=== PATIENT | female | born 1955 | race Caucasian/White ===

== ENCOUNTER 2018-02-24 23:07 | Inpatient (IN) | payer MEDICARE, OTHER ==
[~2018-02-24] VITALS: Ht 172.7 cm; Wt 90.7 kg
[2018-02-24] MEDS ORDERED: ASPIRIN 81 MG CHEW TAB PO ONE (23:45)
[2018-02-25] VITALS (7 sets, daily range): BP systolic 120–191; BP diastolic 50–84
--- NOTE | 2018-02-25 00:41 | Diagnostic Imaging Report ---
History:AMS Comparison studies:None Technique: Axial images were obtained from the skull base to the vertex. Coronal and sagittal images reconstructed from the axial data. Intravenous contrast: None Findings: Scalp/skull: No abnormalities. Extra-axial spaces: No masses. No fluid collections. Brain sulci: Mildly prominent. Ventricles: Mild compensatory dilatation. No hydrocephalus. Parenchyma: Few hypodensities in the supratentorial white matter are small vessel ischemic changes. No masses, hemorrhage, acute or chronic cortical vascular insults. Sellar/suprasellar region: No abnormalities. Craniocervical junction: Patent foramen magnum. No Chiari one malformation. Incidental findings: Atherosclerotic calcifications in the carotid siphons . Impression: No acute abnormalities. Chronic findings: 1. Mild generalized volume loss. 2. Mild supratentorial white matter small vessel ischemic changes. Signed by: DR Castro Alvarez M.D. on 02/25/2018 12:37 AM
--- NOTE | 2018-02-25 00:48 | Diagnostic Imaging Report ---
EXAM: CHEST SINGLE (PORTABLE), AP 1 view INDICATION: Patient altered COMPARISON: None FINDINGS: LINES/TUBES: None LUNGS: Bilateral interstitial and airspace opacities. PLEURA: No effusions or pneumothorax. HEART AND MEDIASTINUM: Enlargement of the cardiomediastinal silhouette. BONES AND SOFT TISSUES: No acute findings. IMPRESSION: Bilateral interstitial and airspace opacities that could represent edema or multifocal pneumonia. Signed by: Dr. Isabel Fraser M.D. on 02/25/2018 12:45 AM
[2018-02-25 01:28] LABS: BILIRUBIN,URINE NEGATIVE (NEGATIVE); CLARITY,URINE CLEAR (CLEAR); COLOR,URINE YELLOW (YELLOW); KETONES,URINE NEGATIVE (NEGATIVE); LEUKOCYTE ESTERASE ,URINE NEGATIVE (NEGATIVE); NITRITE,URINE NEGATIVE (NEGATIVE); PROTEIN,URINE DIPSTICK 2+ (NEGATIVE); URINE UROBILINOGEN 0.2 mg/dL (0.2 - 1)
[2018-02-25 01:31] LABS: BACTERIA,URINE RARE /HPF; EPITHELIAL CELLS,URINE RARE /LPF
[2018-02-25] MEDS ORDERED: CLONIDINE HCL 0.2 MG TAB PO ONE (01:45)
[2018-02-25 02:00] LABS: BASOPHILS # (AUTO) 0.1 (0.0-0.1); BASOPHILS % 0.8 % (0.0-1.0); EOSINOPHILS # (AUTO) 0.1 (0.0-0.4); HEMATOCRIT 40.2 % (34.2-44.1); HEMOGLOBIN 12.1 g/dL (12.0-16.0); LYMPHOCYTES % 16.3 % (18.0-39.1); MEAN CORPUSCULAR HGB CONC 30.1 g/dL (31-35); MEAN CORPUSCULAR VOLUME 99.8 fL (81-99); MONOCYTES # (AUTO) 0.4 (0.2-0.8); MONOCYTES % 7.2 % (4.4-11.3); NEUTROPHILS # (AUTO) 4.5 (2.1-6.9); NEUTROPHILS % 73.4 % (38.7-80.0); PLATELET COUNT 201 x10e3/uL (140-360); RED BLOOD COUNT 4.03 x10e6/uL (3.6-5.1); RED CELL DISTRIBUTION WIDTH 15.3 % (11.7-14.4)
[2018-02-25 02:07] LABS: ALBUMIN 3.3 g/dL (3.5-5.0); ALBUMIN/GLOBULIN RATIO 0.9 (0.8-2.0); ANION GAP 22.3 mmol/L (8-16); CALCIUM 8.5 mg/dL (8.4-10.2); CREATININE, SERUM 5.4 mg/dL (0.57-1.11)
[2018-02-25 02:14] LABS: POTASSIUM 7.3 mmol/L (3.5-5.1)
[2018-02-25] MEDS ORDERED: LORAZEPAM INJ 2 MG/ML VIAL ONE (02:55)
[2018-02-25] MEDS ORDERED: LORAZEPAM INJ 2 MG/ML VIAL IM ONE (03:00)
[2018-02-25] MEDS ORDERED: SODIUM BICARBONATE 8.4% INJ 50 ML SYR IV STA (05:05)
[2018-02-25] MEDS ORDERED: DEXTROSE 50% SYRINGE 50 ML IV STA (05:05)
[2018-02-25] MEDS ORDERED: INSULIN REGULAR, HUMAN 100 UNIT/1 ML 3ML VIAL IV ONE (05:15)
[2018-02-25] MEDS ORDERED: CALCIUM GLUCONATE 10% INJ 13.95 MEQ in SODIUM CHLORIDE 0.9% 100 ML 100 ML IV ONE (05:15)
[2018-02-25] MEDS ORDERED: CALCIUM GLUCONATE 10% INJ 0.465 MEQ/ML VIAL ONE ×2 (05:31→05:39)
[2018-02-25] MEDS ORDERED: CALCIUM CHLORIDE 10% 1.36 MEQ/ML 10ML SYR IV STA (05:36)
[2018-02-25] MEDS ORDERED: SODIUM CHLORIDE 0.9% 50ML 50 ML ONE (05:44)
[2018-02-25] MEDS ORDERED: ONDANSETRON HCL INJ 2 MG/ML VIAL IV PRN (06:15)
[2018-02-25] MEDS ORDERED: DEXTROSE 50% SYRINGE 50 ML IV PRN (06:15)
[2018-02-25] MEDS ORDERED: LORAZEPAM INJ 2 MG/ML VIAL IV PRN (06:15)
[2018-02-25] MEDS: INSULIN REGULAR, HUMAN 100 UNIT/1 ML 3ML VIAL SQ SCH ×4 (07:30→20:12)
--- NOTE | 2018-02-25 08:48 | Consultation ---
DATE OF CONSULTATION: February 25, 2018 NEPHROLOGY CONSULTATION REQUESTING PHYSICIAN: Dr. Walker. REASON FOR CONSULTATION: ESRD. Thank you for allowing us to participate in Ms. Jacobo's care. HISTORY OF PRESENT ILLNESS: This is a 63-year-old female, apparently is a assisted resident with a history of end-stage renal disease. Came in essentially altered, confused, apparently had been refusing dialysis. Currently she is even waking up. There has been a history of trouble walking, but much of the history is extracted from the chart as she herself is not saying anything. PAST HISTORY: Per chart. Hypertension, diabetes, neuropathy. MEDICATIONS: Please see notes. FAMILY HISTORY: Unable to obtain. SOCIAL HISTORY: Apparent assisted resident. REVIEW OF SYSTEMS: Unable to obtain as she is not talking. PHYSICAL EXAMINATION GENERAL: She appears somnolent. Not answering questions. Occasionally will move to pain. VITAL SIGNS: Temperature 98.3, pulse 86, blood pressure was as high as 227/98 and has come down to 153/60 with medications. HEENT: Grossly atraumatic. NECK: Unable to see JVD. CHEST: Diminished breath sounds at the bases. Crackles plus. CARDIAC: Normal heart tones. Rhythm sounds regular at this point. No bradycardia is noted. Heart rate is 72. EXTREMITIES: Trace edema. ABDOMEN: Benign. NEUROLOGIC: Somnolent. SKIN: Appears intact in exposed areas. VASCULAR: Patent left upper extremity AV graft. LABS: Hemoglobin 12. Potassium 7.3, serum CO2 19, creatinine 5.4, BUN 87, sodium 134. UA showing a few RBCs, no WBCs. ASSESSMENT 1. End-stage renal disease with fluid overload. 2. Hyperkalemia. 3. Delirium/altered mental status that needs to be investigated. Some of this may be uremia, but I suspect there may be some drug effects, too, as she is unusually somnolent in this context. PLAN: Emergent dialysis. There is some concern she might move the needles, but I feel the potassium level is life-threatening at this point. Will discuss the orders with dialysis nurse. Will plan a 4-hour run with a 2-potassium bath, fluid removal of 3 to 4 liters. Will follow along clinically. Job#: [id number] EV
[2018-02-25] MEDS ORDERED: SODIUM CHLORIDE 0.9% 1000ML 2,000 ML ONE (14:25)
--- NOTE | 2018-02-25 14:39 | History and Physical ---
PRIMARY CARE PHYSICIAN: Dr. Efren Vazquez. CHIEF COMPLAINT: Altered mental status. HISTORY OF PRESENT ILLNESS: Patient is a 63-year-old female who had a change in mental status at approximately 4 p.m. on February 24. She was not found unresponsive. She is a snf resident at [facility]. She was found to be disoriented and confused. She does not have any history of chronic dementia. Her dextro stick for blood sugar was not low prior to arrival. She has been refusing dialysis. She had approximately 1 hour's worth of dialysis on Tuesday but none since. She has had difficulty walking but no numbness or recent fall. As she is confused, most of her history is obtained from the registered nurse at the bedside as well as the emergency room physician's documentation and documentation from Dr. Archibald with nephrology. PAST MEDICAL HISTORY: Hypertension, diabetes, neuropathy, end-stage renal disease on dialysis Tuesday/Tuesday/Tuesday. PAST SURGICAL HISTORY: Unobtainable due to altered mental status. PAST FAMILY HISTORY: Unable to obtain past family medical history due to patient's altered mental status. SOCIAL HISTORY: Unable to obtain due to patient's altered mental status. ALLERGIES: INCLUDE SULFA, GABAPENTIN AND HEPARIN. MEDICATIONS AT THE LONG TERM: Include aspirin EC tablet 81 mg p.o. daily, atorvastatin 10 mg nightly, bumetanide 2 mg b.i.d., calcium acetate 667 mg with meals, calcium carbonate chewable 500 mg t.i.d. p.r.n. for heartburn, calcium carbonate 500 mg 2 tablets before meals p.r.n. for heartburn, Centrum Women's tablet multivitamin 1 tablet p.o. daily. Clonidine 0.1 mg t.i.d. for hypertension, hold for systolic blood pressure less than 110, diastolic blood pressure less than 60 or heart rate less than 60. Clopidogrel bisulfate 75 mg daily, diclofenac sodium gel 1% application transdermally every 4 hours p.r.n. for pain in the hands, Dilantin capsule 200 mg every 8 hours, Colace 100 mg b.i.d., Dulcolax 5 mg daily p.r.n. for constipation, hydralazine 100 mg daily every Tuesday/Tuesday/Tuesday for hypertension. Hydralazine 100 mg daily every Tuesday, Tuesday, and Tuesday. Keppra 250 mg daily p.r.n. for seizure. Labetalol 300 mg daily Tuesday/Tuesday/Tuesday. Labetalol 300 mg every Tuesday/Tuesday//Tuesday. Keppra 250 mg daily for seizures. Lorazepam 0.5 mg every 6 hours p.r.n. for anxiety. Lorazepam potassium 100 mg daily every Tuesday, Tuesday, and Tuesday. Metolazone 5 mg b.i.d. Milk of magnesia 30 mL daily p.r.n. for constipation. Aspart insulin sliding scale. Oxycodone hydrochloride ER tablet 2 tablets every 12 hours. Oxycodone 10 mg every 4 hours p.r.n. for pain. Pepcid 40 mg daily for GERD. Scopolamine patch 1 mg per 3 day transdermally every 72 hours p.r.n. for dizziness and nausea. Zofran 4 mg p.o. every 6 hours p.r.n. for nausea, vomiting. REVIEW OF SYSTEMS: Unable to obtain as she is confused. PHYSICAL EXAMINATION VITAL SIGNS: Temperature 98.6, heart rate 72, blood pressure 148/59, respirations 18, oxygen saturation 100%. She is 5 feet 8 inches, 200 pounds, BMI 30.4. GENERAL: The patient is a well-nourished, well-developed, morbidly obese female chronically ill-appearing. HEENT: Pupils equal, round, reactive to light. Extraocular eye movements intact. Oropharynx clear. Atraumatic, normocephalic. NECK: Supple. No lymphadenopathy or thyromegaly. No carotid bruits. CARDIOVASCULAR: Regular rate and rhythm without murmur or extra heart sounds. LUNGS: Air entry bilaterally. No wheezing, crackles or rhonchi. Lung sounds are clear to auscultation. ABDOMEN: Bowel sounds positive. Soft, nontender. Morbidly obese. EXTREMITIES: There is some discoloration of the legs consistent with a history of chronic venous insufficiency. Mild nonpitting edema. INTEGUMENTARY: A puncture wound noted right femoral area from attempts at a right femoral central line placement attempt as noted with nursing staff. Skin is warm and dry. NEUROLOGICAL: GCS 13. Eye 4, verbal 4, motor 5. Awake, alert, disoriented. LABORATORY DATA: Sodium 134, potassium 7.3, chloride 100, CO2 19, BUN 97, creatinine 5.4, glucose 149. Glomerular filtration rate 8. Calcium 8.5. Total bilirubin 0.3, AST 19, ALT 15, alkaline phosphatase 165. Creatine kinase 111, CK-MB 5.0, troponin I 0.012. B-type natriuretic peptide 457. Total protein 7.0, albumin 3.3, globulin 3.7. Fingerstick blood glucose levels 225, 66. WBC 6.15, hemoglobin 12.1, hematocrit 40.2, platelets 201. Urinalysis showed 2+ protein, 1+ glucose, 1+ blood, 6-10 RBCs, negative for leukocyte esterase, negative for nitrite. Hepatitis B surface antigen as well as surface antibody, total core antibody and core IgM antibody are all pending. DIAGNOSTIC STUDIES: Chest x-ray was obtained early this morning, and according to the interpreting radiologist illustrated bilateral interstitial and air-space opacities that could represent edema or multifocal pneumonia. CT of the brain showed mild generalized volume loss and mild supratentorial white matter small-vessel ischemic changes. A 12-lead EKG was obtained February 24, which showed normal sinus rhythm with sinus arrhythmia and a heart rate of 87. ASSESSMENT AND PLAN 1. Delirium/altered mental status/toxic encephalopathy: Her altered mental status should be further investigated. I suspect it is multifactorial. She likely has toxic encephalopathy due to lack of dialysis and perhaps accumulation of medications in her system. I will ask Psychiatry to also see the patient. Monitor for improvement with dialysis, which is to occur NANCIE. 2. End-stage renal disease with fluid volume overload. Nephrology has been consulted and is planning on completing hemodialysis today. However, this is complicated by the fact that the patient's family members and POA do not have any accurate phone numbers listed in the chart. The nurse will continue to attempt to get ahold of family. However, in the meantime Dr. Vazquez and Dr. Archibald have both agreed to give consent for emergent hemodialysis. 3. Severe hyperkalemia with potassium level 7.3. Again, the patient will undergo hemodialysis today. 4. Hypertension. Continue snf medications as tolerated. If patient refuses to take them orally, then some may need to be converted from p.o. to IV. 5. Type 2 diabetes mellitus. Monitor fingerstick blood glucose levels. She is on a regular insulin sliding scale. 6. Neuropathy. Continue patient's snf medications. 7. Morbid obesity. She should be on a calorie-reduced renal diabetic diet. 8. History of seizures. Continue snf medications. Substitute with IV medications if not tolerating p.o. 9. Transaminitis. 10. Peripheral access, Pepcid and SCDs. Dictated by: Myles Al NP Job#: [id number] EV
[2018-02-25] MEDS ORDERED: LORAZEPAM INJ 2 MG/ML VIAL IV ONE (15:00)
[2018-02-25] MEDS: FAMOTIDINE 20 MG TAB PO SCH (16:30)
[2018-02-26] VITALS: BP 179/67
[2018-02-26] MEDS ORDERED: HYDRALAZINE HCL 20 MG/ML VIAL IV PRN (01:30)
[2018-02-26] MEDS: CLONIDINE HCL 0.1 MG TAB PO PRN ×2 (02:06→12:40)
[2018-02-26 06:16] LABS: HEMATOCRIT 37.1 % (34.2-44.1); HEMOGLOBIN 11.8 g/dL (12.0-16.0)
[2018-02-26 06:17] LABS: MEAN CORPUSCULAR HEMOGLOBIN 30.3 pg (28-32); MEAN CORPUSCULAR HGB CONC 31.8 g/dL (31-35); MEAN CORPUSCULAR VOLUME 95.1 fL (81-99); PLATELET COUNT 199 x10e3/uL (140-360); RED CELL DISTRIBUTION WIDTH 15.2 % (11.7-14.4)
[2018-02-26 06:18] LABS: EOSINOPHILS % 2.6 % (0.0-6.0); LYMPHOCYTES % 16.3 % (18.0-39.1); MONOCYTES % 7.7 % (4.4-11.3); NEUTROPHILS % 72.4 % (38.7-80.0)
[2018-02-26 06:19] LABS: BASOPHILS % 0.6 % (0.0-1.0); EOSINOPHILS # (AUTO) 0.2 (0.0-0.4); LYMPHOCYTES # (AUTO) 1.1 (1.0-3.2); MONOCYTES # (AUTO) 0.5 (0.2-0.8)
[2018-02-26 06:30] LABS: ALBUMIN 3.1 g/dL (3.5-5.0); ALBUMIN/GLOBULIN RATIO 0.9 (0.8-2.0); CALCIUM 8.7 mg/dL (8.4-10.2); CREATININE, SERUM 3.71 mg/dL (0.57-1.11)
[2018-02-26 07:30] VITALS: BP 189/81
[2018-02-26] MEDS: INSULIN REGULAR, HUMAN 100 UNIT/1 ML 3ML VIAL SQ SCH ×4 (07:30→20:42)
[2018-02-26] MEDS: FAMOTIDINE 20 MG TAB PO SCH ×2 (09:19→17:10)
[2018-02-26 09:25] VITALS: BP 189/81
[2018-02-26] MEDS ORDERED: LORAZEPAM0.5 MG PO (11:54)
[2018-02-26] MEDS ORDERED: LOSARTAN POTAS100 MG PO (11:54)
[2018-02-26] MEDS ORDERED: ASPIRIN EC81 MG PO (11:54)
[2018-02-26] MEDS ORDERED: DICLOFENAC GEL TD (11:54)
[2018-02-26] MEDS ORDERED: DILANTIN100 MG PO (11:54)
[2018-02-26] MEDS ORDERED: BUMETANIDE2 MG PO (11:54)
[2018-02-26] MEDS ORDERED: MILK OF MA400 MG/5 M PO (11:54)
[2018-02-26] MEDS ORDERED: LABETALOL HCL100 MG PO (11:54)
[2018-02-26] MEDS ORDERED: MILK OF MA2400 MG/10 (11:54)
[2018-02-26] MEDS ORDERED: CALCIUM ACETAT667 MG PO (11:54)
[2018-02-26] MEDS ORDERED: CALCIUM CARBON500 MG PO (11:54)
[2018-02-26] MEDS ORDERED: DOCUSATE SODIU100 MG PO (11:54)
[2018-02-26] MEDS ORDERED: DULCOLAX5 MG PO (11:54)
[2018-02-26] MEDS ORDERED: CLOPIDOGREL75 MG PO (11:54)
[2018-02-26] MEDS ORDERED: OXYCODONE HCL10 MG PO (11:54)
[2018-02-26] MEDS ORDERED: KEPPRA500 MG PO (11:54)
[2018-02-26] MEDS ORDERED: HYDRALAZINE HC100 MG PO (11:54)
[2018-02-26] MEDS ORDERED: ATORVASTATIN CA10 MG PO (11:54)
[2018-02-26] MEDS ORDERED: LEVETIRACETAM250 MG PO (11:54)
[2018-02-26] MEDS ORDERED: CLONIDINE HCL0.1 MG PO (11:54)
[2018-02-26] MEDS ORDERED: METOLAZONE5 MG PO (11:54)
[2018-02-26] MEDS ORDERED: ZOFRAN ODT4 MG PO (12:16)
[2018-02-26] MEDS ORDERED: NOVOLOG100 UNIT/1 ×2 (12:16→12:51)
[2018-02-26] MEDS ORDERED: TRANSDERM-SCOP1 EACH TD (12:16)
[2018-02-26] MEDS ORDERED: PEPCID20 MG PO (12:16)
[2018-02-26] MEDS ORDERED: CENTRUM COMPLE1 EACH PO (12:20)
[2018-02-26 12:30] VITALS: BP 209/78
[2018-02-26] MEDS: LORAZEPAM 1 MG TAB PO PRN (12:40)
[2018-02-26] MEDS ORDERED: PERCOCET 10-321 EACH PO (12:51)
[2018-02-26] MEDS ORDERED: LABETALOL HCL 100 MG TAB PO PRN (14:15)
[2018-02-26] MEDS ORDERED: LORAZEPAM 0.5 MG TAB PO PRN (14:15)
[2018-02-26] MEDS ORDERED: ONDANSETRON HCL 4 MG ORAL DISINTEGRATING TAB PO PRN (14:15)
[2018-02-26] MEDS ORDERED: SCOPOLAMINE 1.5 MG PATCH TD PRN (14:15)
[2018-02-26] MEDS ORDERED: DOCUSATE SODIUM 100 MG CAP PO PRN (14:15)
[2018-02-26] MEDS ORDERED: LEVETIRACETAM 500 MG TAB PO PRN (14:15)
[2018-02-26] MEDS ORDERED: CALCIUM ACETATE 667 MG GELCAP PO PRN (14:15)
[2018-02-26] MEDS ORDERED: BISACODYL 5 MG TAB EC PO PRN (14:15)
[2018-02-26] MEDS: CLONIDINE HCL 0.1 MG TAB PO SCH ×2 (15:00→20:41)
[2018-02-26] MEDS ORDERED: OYST-CAL-D 500MG TABLET PO SCH (15:00)
[2018-02-26] MEDS ORDERED: OYST-CAL-D 500MG TABLET PO PRN (16:30)
[2018-02-26 17:00] VITALS: BP 165/65
[2018-02-26] MEDS ORDERED: METOLAZONE 5 MG TAB PO SCH (17:00)
[2018-02-26] MEDS ORDERED: DICLOFENAC SOD 1% GEL 100 GM TUBE TP SCH (18:00)
[2018-02-26] MEDS ORDERED: DICLOFENAC SOD 1% GEL 100 GM TUBE TP PRN (18:00)
[2018-02-26 20:00] VITALS: BP_SYST 150; BP_SYST 194; BP_DIAS 77; BP_DIAS 99
[2018-02-26] MEDS: METOLAZONE 5 MG TAB PO SCH (20:42)
[2018-02-26] MEDS ORDERED: ATORVASTATIN 10 MG TAB PO SCH (21:00)
[2018-02-26] MEDS: PHENYTOIN SODIUM EXT REL 100 MG CAP PO SCH (21:12)
[2018-02-26] MEDS: HYDRALAZINE HCL 10 MG TAB PO PRN (22:12)
[2018-02-26] MEDS: OXYCODONE/ACETAMINOPHEN 5-325 1 EACH TABLET PO PRN (22:14)
[2018-02-27] VITALS (10 sets, daily range): BP systolic 141–189; BP diastolic 58–101
[2018-02-27] MEDS: HYDRALAZINE HCL 10 MG TAB PO PRN (05:00)
[2018-02-27] MEDS: PHENYTOIN SODIUM EXT REL 100 MG CAP PO SCH ×2 (05:49→14:21)
[2018-02-27] MEDS: FAMOTIDINE 20 MG TAB PO SCH ×2 (07:30→16:20)
[2018-02-27] MEDS: INSULIN REGULAR, HUMAN 100 UNIT/1 ML 3ML VIAL SQ SCH ×4 (07:30→17:21)
[2018-02-27] MEDS: CLONIDINE HCL 0.1 MG TAB PO SCH ×2 (08:29→14:22)
[2018-02-27] MEDS: METOLAZONE 5 MG TAB PO SCH (08:29)
[2018-02-27] MEDS: HYDRALAZINE HCL 100 MG TABLET PO SCH ×2 (08:30→16:06)
[2018-02-27] MEDS ORDERED: LEVETIRACETAM 500 MG TAB PO SCH (09:00)
[2018-02-27] MEDS ORDERED: ASPIRIN 81 MG ENTERIC COATED PO SCH (09:00)
[2018-02-27] MEDS ORDERED: LOSARTAN POTASSIUM 100 MG TAB PO SCH (09:00)
[2018-02-27] MEDS ORDERED: MULTIVITAMINS/MINERALS TAB PO SCH (09:00)
[2018-02-27] MEDS ORDERED: HYDRALAZINE HCL 10 MG TAB PO SCH (09:00)
[2018-02-27] MEDS ORDERED: CLOPIDOGREL BISULFATE 75 MG TAB PO SCH (09:00)
[2018-02-27] MEDS: LORAZEPAM 1 MG TAB PO PRN (09:33)
[2018-02-27] MEDS: OXYCODONE/ACETAMINOPHEN 5-325 1 EACH TABLET PO PRN (09:33)
[2018-02-27 09:55] LABS: BASOPHILS % 0.2 % (0.0-1.0); EOSINOPHILS # (AUTO) 0.2 (0.0-0.4); EOSINOPHILS % 3.9 % (0.0-6.0); HEMATOCRIT 34.3 % (34.2-44.1); HEMOGLOBIN 10.5 g/dL (12.0-16.0); LYMPHOCYTES # (AUTO) 0.7 (1.0-3.2); MEAN CORPUSCULAR HEMOGLOBIN 29.7 pg (28-32); MEAN CORPUSCULAR HGB CONC 30.6 g/dL (31-35); MEAN CORPUSCULAR VOLUME 97.2 fL (81-99); MONOCYTES # (AUTO) 0.4 (0.2-0.8); NEUTROPHILS # (AUTO) 4.7 (2.1-6.9); NEUTROPHILS % 76.6 % (38.7-80.0); PLATELET COUNT 165 x10e3/uL (140-360); RED BLOOD COUNT 3.53 x10e6/uL (3.6-5.1); RED CELL DISTRIBUTION WIDTH 15.1 % (11.7-14.4)
[2018-02-27 10:05] LABS: ANION GAP 15.9 mmol/L (8-16); CALCIUM 7.9 mg/dL (8.4-10.2); CREATININE, SERUM 3.87 mg/dL (0.57-1.11); MAGNESIUM 1.7 MG/DL (1.3-2.1); PHOSPHORUS 5.8 MG/DL (2.3-4.7); POTASSIUM 4.9 mmol/L (3.5-5.1)
[2018-02-27] MEDS ORDERED: QUETIAPINE FUMARATE 25 MG TAB PO PRN (18:00)
[2018-02-27] MEDS ORDERED: LORAZEPAM INJ 2 MG/ML VIAL IM PRN (18:00)
--- NOTE | 2018-02-27 19:30 | Consultation ---
DATE OF CONSULTATION: February 27, 2018 REASON FOR CONSULTATION: To evaluate the patient's psychosis. HISTORY OF PRESENT ILLNESS: The patient is a 63-year-old female admitted to the hospital for confusion and end-stage renal disease on dialysis. Psychiatric consultation is called to evaluate the patient's psychosis. As per the medical records, the patient was transferred from [facility] for confusion and disorientation. She has history of hypertension, diabetes, neuropathy, end-stage renal disease and on dialysis on Tuesday, Tuesday and Tuesday. As per the nursing staff, the patient has been noncompliant with her dialysis. She was confused over the weekend, but has improved in terms of mental status. She did receive p.r.n. Ativan IV, one dose, and as sleeping most of the day, but she is awake, alert today. Upon evaluation today, the patient is found to be in the room. She is awake, alert and oriented to self, place and time. The patient states that she is doing okay. She denies any depression or anxiety. She denies any hallucinations. She denies any suicidal ideation. She denies any problems with sleep or appetite. She is irritable, but not combative or agitated. She is getting p.r.n. Ativan p.o. PAST PSYCHIATRIC HISTORY: The patient denies past psychiatric history, but she does appear to have a lot of medication for anxiety. She denies past suicidal attempts. She denies alcohol or drug use. FAMILY HISTORY: The patient denies. SOCIAL HISTORY: The patient has been living at [facility]. Nursing staff said that the patient is living alone. MENTAL STATUS EXAM: The patient is an elderly, female. She is awake, alert and oriented to situation. Her mood is anxious with flat affect. She denies any suicidal or homicidal ideation. She denies any hallucinations. Her thought process is concrete. She denies any delusions or paranoia. Insight and judgment are fair. Memory grossly intact. CURRENT MEDICATIONS: 1. Clonidine. 2. Dilantin. 3. Percocet. 4. Ativan 1 mg p.o. q.3 h. as needed for anxiety. 5. Metolazone. 6. Keppra. 7. Multivitamins. 8. Plavix. 9. Aspirin. 10. Famotidine. 11. Hydralazine. 12. Atorvastatin. 13. Ativan 1 mg IV q.6 h. p.r.n. 14. Insulin. 15. Diclofenac. 16. Calcium. 17. . 18. Ondansetron. 19. mg p.o. q.6 h. p.r.n. 20. Labetalol. 21. Docusate. 22. . 23. . LABORATORY DATA: WBC 6.10, RBCs 7.53, hemoglobin 10.5, hematocrit 34.3, platelets 165,000, sodium 138, potassium 3.9, chloride 101, CO2 of 26, BUN 55, creatinine 3.87. ASSESSMENT: Unspecified psychosis: Anxiety disorder. PLAN: 1. Discontinue Ativan 1 mg p.o. q.3 h. p.r.n. 2. Continue Ativan 0.5 mg p.o. q.6 h. p.r.n. Reduce Ativan 1 mg IV q.6 h. p.r.n. to 0.5 IM q.6 h. p.r.n. 3. Add Seroquel 25 mg p.o. q.6 h. p.r.n. 4. Seizure medication as per medical. 5. Discussed with the nursing staff. Thank you for this consultation. DICTATED BY KESHA FERNANDES Job#: [id number]
== END 2018-02-27 18:32 | DRG 682 ==
LOC: ER 23:07 → ERHOLD 02-25 06:23 → IMCU 02-25 07:57
PROVIDERS: ADMIT Internal Medicine; ATTEND Internal Medicine
PROC: 5A1D70Z Performance of Urinary Filtration, Intermittent, Less than 6 Hours Per Day (ICD-10-PCS; principal; 2018-02-25)
PROC: 02HV33Z Insertion of Infusion Device into Superior Vena Cava, Percutaneous Approach (ICD-10-PCS; 2018-02-25)
DX: I12.0 Hypertensive chronic kidney disease with stage 5 chronic kidney disease or end stage renal disease (principal); N18.6 End stage renal disease; G92 Toxic encephalopathy; I87.1 Compression of vein; E87.5 Hyperkalemia; F03.90 Unspecified dementia, unspecified severity, without behavioral disturbance, psychotic disturbance, mood disturbance, and anxiety; E11.22 Type 2 diabetes mellitus with diabetic chronic kidney disease; Z99.2 Dependence on renal dialysis; Z79.4 Long term (current) use of insulin; E11.40 Type 2 diabetes mellitus with diabetic neuropathy, unspecified; Z91.15 Patient's noncompliance with renal dialysis; I87.8 Other specified disorders of veins; I87.2 Venous insufficiency (chronic) (peripheral); E66.01 Morbid (severe) obesity due to excess calories; Z68.30 Body mass index [BMI] 30.0-30.9, adult; G40.909 Epilepsy, unspecified, not intractable, without status epilepticus; R26.2 Difficulty in walking, not elsewhere classified; L40.8 Other psoriasis; F41.9 Anxiety disorder, unspecified; K59.00 Constipation, unspecified; H54.8 Legal blindness, as defined in USA
CPT/HCPCS: 36415; 70450; 71045; 80048; 80053; 81001; 82550; 82553; 82948; 83735; 83880; 84100; 84484; 85025; 86704; 86705; 86706; 87340; 90962; 93005; 99284; J0610; J2060; J7030; J7799

== ENCOUNTER 2018-03-12 22:26 | Inpatient (IN) | payer MEDICARE, OTHER ==
[~2018-03-12] VITALS: Ht 172.7 cm; Wt 79.4 kg
[~2018-03-12 22:26] MED LIST: ASPIRIN EC81 MG PO; ATORVASTATIN CA10 MG PO; BUMETANIDE2 MG PO; CALCIUM ACETAT667 MG PO; CALCIUM CARBON500 MG PO; CENTRUM COMPLE1 EACH PO; CLONIDINE HCL0.1 MG PO; CLOPIDOGREL75 MG PO; DICLOFENAC GEL TD; DILANTIN100 MG PO; DOCUSATE SODIU100 MG PO; DULCOLAX5 MG PO; HYDRALAZINE HC100 MG PO; KEPPRA500 MG PO; LABETALOL HCL100 MG PO; LEVETIRACETAM250 MG PO; LORAZEPAM0.5 MG PO; LOSARTAN POTAS100 MG PO; METOLAZONE5 MG PO; MILK OF MA2400 MG/10; MILK OF MA400 MG/5 M PO; NOVOLOG100 UNIT/1; OXYCODONE HCL10 MG PO; PEPCID20 MG PO; PERCOCET 10-321 EACH PO; TRANSDERM-SCOP1 EACH TD; ZOFRAN ODT4 MG PO
[2018-03-12] MEDS ORDERED: ASPIRIN 81 MG CHEW TAB PO ONE (22:45)
--- NOTE | 2018-03-12 23:16 | Diagnostic Imaging Report ---
EXAMINATION: CHEST SINGLE (PORTABLE) INDICATION: Follow-up airspace opacities COMPARISON: 02/25/2018 FINDINGS: TUBES and LINES: None. LUNGS: Lungs are not well inflated. There are bibasilar atelectasis. There is perihilar interstitial opacities, consistent with interstitial edema. More confluent opacity in the left upper lobe remains stable. PLEURA: No pleural effusion or pneumothorax. HEART AND MEDIASTINUM: Cardiac size is moderately enlarged. There are atherosclerotic calcifications within the aorta. BONES AND SOFT TISSUES: No acute osseous lesion. Soft tissues are unremarkable. UPPER ABDOMEN: No free air under the diaphragm. IMPRESSION: 1. Findings remain suspicious for interstitial edema. 2. Confluent opacity in the left upper lobe is suspicious for infection. 3. Follow-up until resolution after treatment is recommended Signed by: Dr. Isidro Phillips M.D. on 03/12/2018 11:13 PM
[2018-03-13] VITALS (9 sets, daily range): BP systolic 128–190; BP diastolic 52–97
[2018-03-13 00:02] LABS: BASOPHILS % 0.3 % (0.0-1.0); EOSINOPHILS # (AUTO) 0.3 (0.0-0.4); EOSINOPHILS % 3.2 % (0.0-6.0); HEMATOCRIT 32.8 % (34.2-44.1); HEMOGLOBIN 10.5 g/dL (12.0-16.0); LYMPHOCYTES # (AUTO) 0.9 (1.0-3.2); LYMPHOCYTES % 10.1 % (18.0-39.1); MEAN CORPUSCULAR HEMOGLOBIN 29.7 pg (28-32); MEAN CORPUSCULAR VOLUME 92.9 fL (81-99); MONOCYTES # (AUTO) 0.6 (0.2-0.8); MONOCYTES % 6.8 % (4.4-11.3); NEUTROPHILS # (AUTO) 7.4 (2.1-6.9); NEUTROPHILS % 79.3 % (38.7-80.0); PLATELET COUNT 240 x10e3/uL (140-360); RED BLOOD COUNT 3.53 x10e6/uL (3.6-5.1)
[2018-03-13 00:21] LABS: ALBUMIN 3.2 g/dL (3.5-5.0); ALBUMIN/GLOBULIN RATIO 0.7 (0.8-2.0); ANION GAP 21.1 mmol/L (8-16); CREATININE, SERUM 5.7 mg/dL (0.57-1.11)
[2018-03-13 00:27] LABS: CREATINE KINASE MB 27.7 ng/mL (0-5.0)
[2018-03-13 00:33] LABS: CALCIUM 9.2 mg/dL (8.4-10.2); POTASSIUM 7.1 mmol/L (3.5-5.1)
[2018-03-13] MEDS ORDERED: DEXTROSE 50% SYRINGE 50 ML IV STA (00:33)
[2018-03-13] MEDS ORDERED: SOD POLYSTYRENE SULFONATE SUSP 15 GM/60 ML BTL PR ONE (00:45)
[2018-03-13] MEDS ORDERED: WATER STERILE 10 ML VIAL IV SCH (00:45)
[2018-03-13] MEDS ORDERED: ASPIRIN 81 MG CHEW TAB PO ONE (00:45)
[2018-03-13] MEDS ORDERED: INSULIN REGULAR, HUMAN 100 UNIT/1 ML 3ML VIAL IV ONE (00:45)
[2018-03-13] MEDS ORDERED: CALCIUM GLUCONATE 10% INJ 4.65 MEQ in SODIUM CHLORIDE 0.9% 50ML 50 ML IV ONE (00:45)
[2018-03-13] MEDS ORDERED: VANCOMYCIN HCL 1GM/NS 250 ML BAG IV SCH (00:45)
[2018-03-13] MEDS ORDERED: LEVOFLOXACIN 750MG/DEXTROSE PREMIX BAG 150ML IV SCH (00:45)
[2018-03-13] MEDS ORDERED: GENTAMICIN 80MG/NS IV SCH (01:00)
[2018-03-13] MEDS ORDERED: VANCOMYCIN IV SCH ×2 (02:00→09:00)
[2018-03-13] MEDS ORDERED: [UNRECOGNIZED DRUG - OTHER] IV SCH ×2 (02:00→09:00)
--- NOTE | 2018-03-13 02:18 | Diagnostic Imaging Report ---
FOOT LEFT COMPLETE HISTORY: Soft tissue wounds, ulcerations, concerning for osteomyelitis. COMPARISON: None FINDINGS: Bones: No displaced fracture. Sclerosis at the distal fifth metatarsal diaphysis may represent a stress injury Osseous alignment is within normal limits. Joints: The joint spaces are well-maintained. Soft tissues: Soft tissue defect at the plantar aspect of the left foot heel. Extensive vascular calcifications in the distribution of the anterior, posterior T11 and peroneal arteries as well as branches throughout the left foot. IMPRESSION: 1. Sclerotic linear lesion in the distal left fifth metatarsal diaphysis may represent a stress injury/fracture. 2. Soft tissue ulceration at the left heel. 3. No evidence of osteomyelitis. Signed by: Dr. Isidro Phillips M.D. on 03/13/2018 2:14 AM
[2018-03-13] MEDS ORDERED: SODIUM CHLORIDE 0.9% 250ML 250 ML ONE (03:38)
[2018-03-13] MEDS ORDERED: AZTREONAM 2 GM VIAL IV SCH ×2 (06:00→09:00)
[2018-03-13] MEDS: GENTAMICIN 80MG/NS 100 ML 100 ML IV SCH (09:00)
[2018-03-13] MEDS ORDERED: AZTREONAM 2GM/NS 100ML 100 ML IV SCH (09:00)
[2018-03-13 09:03] LABS: CREATINE KINASE MB 25.4 ng/mL (0-5.0)
[2018-03-13] MEDS ORDERED: DEXTROSE 50% SYRINGE 50 ML IV PRN ×2 (09:15→10:30)
[2018-03-13] MEDS ORDERED: AZITHROMYCIN 500MG/NS 250 ML 250 ML IV SCH (09:15)
[2018-03-13] MEDS ORDERED: CALCIUM ACETATE 667 MG GELCAP PO PRN (09:15)
[2018-03-13] MEDS ORDERED: LORAZEPAM 0.5 MG TAB PO PRN (09:15)
[2018-03-13] MEDS: LOSARTAN POTASSIUM 100 MG TAB PO SCH (09:15)
[2018-03-13] MEDS ORDERED: VANCOMYCIN 1GM/NS 250 ML 250 ML IV SCH (09:15)
[2018-03-13 09:29] LABS: ANION GAP 19.2 mmol/L (8-16); CALCIUM 8.8 mg/dL (8.4-10.2)
[2018-03-13 09:30] LABS: POTASSIUM 7.2 mmol/L (3.5-5.1)
[2018-03-13] MEDS: LORAZEPAM INJ 2 MG/ML VIAL IV PRN ×2 (10:00→19:43)
[2018-03-13] MEDS ORDERED: LABETALOL HCL 100 MG TAB PO PRN (10:30)
[2018-03-13] MEDS ORDERED: DOCUSATE SODIUM 100 MG CAP PO PRN (10:30)
[2018-03-13] MEDS: ALBUTEROL/IPRATROPIUM 3 ML NEB NEB SCH ×4 (11:00→23:12)
[2018-03-13] MEDS: INSULIN LISPRO 100 UNIT/1 ML 3ML VIAL SQ SCH ×3 (11:30→21:00)
[2018-03-13] MEDS ORDERED: INSULIN REGULAR, HUMAN 100 UNIT/1 ML 3ML VIAL SQ SCH (11:30)
[2018-03-13] MEDS ORDERED: SODIUM CHLORIDE 0.9% 1000ML 1,000 ML ONE (11:36)
--- NOTE | 2018-03-13 12:29 | Consultation ---
DATE OF CONSULTATION: March 13, 2018 RENAL CONSULTATION History predominantly from old records. Patient with altered mental state, barely arousable. Unable to get any history or review of systems. Apparently brought in yesterday. Missed her dialysis. Apparently last dialyzed Tuesday. Lives in [facility]. Underlying end-stage renal disease, multiple comorbidities. Received some sedation for agitation. Today white count 9.3, hemoglobin 10.5 with a potassium 7.2, sodium 128, bicarbonate 25, creatinine 6 with a calcium 8.8. Elevated CPK with a troponin 0.048. ALLERGIES: TO SULFA, GABAPENTIN AND HEPARIN. Received 1.5 grams of vancomycin one-time dose, received Levaquin as well. Has been on Keppra 250 mg once a day. Labetalol 300 mg daily p.r.n., elevated blood pressure, which I am going to stop. Famotidine daily. Plavix 75 mg once a day. Clonidine 0.1 mg p.o. q.8. PhosLo p.o. t.i.d. p.r.n., which I am going to stop. Aspirin once a day. Received some calcium gluconate one-time dose. Apparently started on aztreonam and azithromycin. Aztreonam is 2 grams IV q.8, which needs to be changed. I will just rewrite the dose to 500 mg IV piggyback q.8. Also on losartan 100 mg daily. Insulin per protocol. SOCIAL HISTORY: detention patient. No reported history of tobacco or alcohol use. FAMILY HISTORY: Not available. PHYSICAL EXAMINATION: GENERAL: Altered state of mind. VITALS: Blood pressure 133/63, pulse rate 78. No respiratory distress noted. Respiratory rate 18. Apparent oxygen saturation 100% on 2 liters nasal cannula. HEAD AND NECK: Pupils were a little reactive. Unable to clearly see the conjunctival color as it was room light. Neck veins flat. Oral mucosa not examined. LUNGS: Supine exam. Poor voluntary effort. No rales. HEART: S1 and S2 audible. ABDOMEN: Soft. LOWER EXTREMITY EXAMINATION: No edema. IMPRESSION: 1. Life-threatening hyperkalemia. 2. Underlying end-stage renal disease. 3. Type 2 diabetes. This is a life-threatening emergency. Apparently power of attorney at law is unable to be reached. I will be doing dialysis immediately on an emergency basis. Nurse by bedside. 4. Suspected pneumonia. 5. Elevated creatine kinase, etiology unclear. Please see orders. Job#: [id number] EV
[2018-03-13] MEDS: CLONIDINE HCL 0.1 MG TAB PO SCH ×2 (14:00→22:23)
[2018-03-13] MEDS ORDERED: AZTREONAM (AZACTAM) 0.5 GM in WATER STERILE 10ML VIAL 10 ML IV SCH (14:00)
[2018-03-13] MEDS ORDERED: AZTREONAM (AZACTAM) 0.5 GM in SODIUM CHLORIDE 0.9% 50ML 50 ML IV SCH (14:00)
[2018-03-13] MEDS ORDERED: AZTREONAM 1 GM VIAL IV SCH ×2 (14:00→20:00)
[2018-03-13] MEDS: LEVETIRACETAM 500 MG TAB PO SCH (16:00)
[2018-03-13] MEDS: ASPIRIN 81 MG ENTERIC COATED PO SCH (16:00)
[2018-03-13] MEDS: GUAIFENESIN 600 MG TAB PO SCH ×2 (16:00→17:58)
[2018-03-13] MEDS: CLOPIDOGREL BISULFATE 75 MG TAB PO SCH (16:00)
[2018-03-13] MEDS: BALSAM PERU/CASTOR OIL 60 GM OINT...G. TP SCH (17:00)
[2018-03-13] MEDS: PHENYTOIN SODIUM EXT REL 100 MG CAP PO SCH ×2 (17:00→22:23)
[2018-03-13] MEDS: AZITHROMYCIN 500MG/NS 250 ML 250 ML IV SCH (17:15)
[2018-03-13] MEDS ORDERED: OXYCODONE HCL 10 MG TAB CR PO PRN (17:30)
[2018-03-13] MEDS: AZTREONAM (AZACTAM) 0.5 GM in SODIUM CHLORIDE 0.9% 50ML 50 ML IV SCH (17:43)
[2018-03-13] MEDS: OXYCODONE HCL IR 5 MG TAB PO PRN (17:44)
[2018-03-13 18:13] LABS: CREATINE KINASE MB 21.3 ng/mL (0-5.0)
[2018-03-13] MEDS: ATORVASTATIN 10 MG TAB PO SCH (21:42)
[2018-03-14] VITALS (7 sets, daily range): BP systolic 83–179; BP diastolic 46–72
[2018-03-14] MEDS: GUAIFENESIN 600 MG TAB PO SCH ×4 (00:03→17:04)
[2018-03-14] MEDS: AZTREONAM (AZACTAM) 0.5 GM in SODIUM CHLORIDE 0.9% 50ML 50 ML IV SCH ×2 (02:06→09:59)
[2018-03-14] MEDS: ALBUTEROL/IPRATROPIUM 3 ML NEB NEB SCH ×3 (03:15→11:10)
[2018-03-14] MEDS: OXYCODONE HCL IR 5 MG TAB PO PRN ×4 (03:30→22:27)
[2018-03-14 05:21] LABS: BASOPHILS % 0.8 % (0.0-1.0); EOSINOPHILS # (AUTO) 0.2 (0.0-0.4); EOSINOPHILS % 3.9 % (0.0-6.0); HEMATOCRIT 27.4 % (34.2-44.1); HEMOGLOBIN 8.5 g/dL (12.0-16.0); LYMPHOCYTES # (AUTO) 0.6 (1.0-3.2); LYMPHOCYTES % 11.8 % (18.0-39.1); MEAN CORPUSCULAR HEMOGLOBIN 29.5 pg (28-32); MEAN CORPUSCULAR VOLUME 95.1 fL (81-99); MONOCYTES # (AUTO) 0.5 (0.2-0.8); MONOCYTES % 9.6 % (4.4-11.3); NEUTROPHILS # (AUTO) 3.9 (2.1-6.9); NEUTROPHILS % 73.5 % (38.7-80.0); PLATELET COUNT 177 x10e3/uL (140-360); RED BLOOD COUNT 2.88 x10e6/uL (3.6-5.1); RED CELL DISTRIBUTION WIDTH 13.7 % (11.7-14.4)
[2018-03-14 05:53] LABS: B-TYPE NATRIURETIC PEPTIDE2 364.1 pg/mL (0-100)
[2018-03-14 06:02] LABS: ALBUMIN 2.6 g/dL (3.5-5.0); ALBUMIN/GLOBULIN RATIO 0.7 (0.8-2.0); ANION GAP 14.4 mmol/L (8-16); CALCIUM 8.1 mg/dL (8.4-10.2); CREATININE, SERUM 3.25 mg/dL (0.57-1.11); POTASSIUM 4.4 mmol/L (3.5-5.1)
[2018-03-14] MEDS: CLONIDINE HCL 0.1 MG TAB PO SCH ×3 (06:10→22:00)
[2018-03-14] MEDS: PHENYTOIN SODIUM EXT REL 100 MG CAP PO SCH ×3 (06:10→22:19)
[2018-03-14 06:11] LABS: MAGNESIUM 1.9 MG/DL (1.3-2.1)
[2018-03-14 06:34] LABS: FREE T4 (FREE THYROXINE) 0.63 ng/dL (0.9-1.8); THYROID STIMULATING HORMONE 2.179 uIU/mL (0.350-4.940)
[2018-03-14] MEDS: INSULIN LISPRO 100 UNIT/1 ML 3ML VIAL SQ SCH ×4 (07:30→21:55)
[2018-03-14 08:47] LABS: INR 1.08; PARTIAL THROMBOPLASTIN TIME 32.1 seconds (23.8-35.5); PROTHROMBIN TIME 13.2 seconds (11.9-14.5)
[2018-03-14] MEDS: CLOPIDOGREL BISULFATE 75 MG TAB PO SCH (09:00)
[2018-03-14] MEDS: GENTAMICIN 80MG/NS 100 ML 100 ML IV SCH (09:00)
[2018-03-14] MEDS: LEVETIRACETAM 500 MG TAB PO SCH (09:00)
[2018-03-14] MEDS: HYDRALAZINE HCL 100 MG TABLET PO SCH ×2 (09:00→17:00)
[2018-03-14] MEDS: LOSARTAN POTASSIUM 100 MG TAB PO SCH (09:00)
[2018-03-14] MEDS ORDERED: HYDRALAZINE HCL 100 MG TABLET PO SCH (09:00)
[2018-03-14] MEDS: BALSAM PERU/CASTOR OIL 60 GM OINT...G. TP SCH ×2 (09:00→16:40)
[2018-03-14] MEDS ORDERED: FAMOTIDINE 20 MG TAB PO SCH (09:00)
[2018-03-14] MEDS: ASPIRIN 81 MG ENTERIC COATED PO SCH (09:00)
[2018-03-14] MEDS: LORAZEPAM INJ 2 MG/ML VIAL IV PRN (10:09)
[2018-03-14 11:57] LABS: CLARITY,URINE CLOUDY (CLEAR); COLOR,URINE YELLOW (YELLOW)
[2018-03-14 11:58] LABS: BILIRUBIN,URINE NEGATIVE (NEGATIVE); KETONES,URINE NEGATIVE (NEGATIVE); LEUKOCYTE ESTERASE ,URINE 2+ (NEGATIVE); NITRITE,URINE NEGATIVE (NEGATIVE); PROTEIN,URINE DIPSTICK 3+ (NEGATIVE); URINE UROBILINOGEN 0.2 mg/dL (0.2 - 1)
[2018-03-14 12:15] LABS: BACTERIA,URINE MODERATE /HPF; EPITHELIAL CELLS,URINE RARE /LPF; WBC,URINE (MAN) >50 /HPF (0-5)
[2018-03-14] MEDS: AZITHROMYCIN 500MG/NS 250 ML 250 ML IV SCH (17:05)
[2018-03-14] MEDS: ATORVASTATIN 10 MG TAB PO SCH (22:19)
[2018-03-15] MEDS: LORAZEPAM INJ 2 MG/ML VIAL IV PRN (01:42)
[2018-03-15 05:06] LABS: BASOPHILS % 0.7 % (0.0-1.0); EOSINOPHILS # (AUTO) 0.4 (0.0-0.4); EOSINOPHILS % 6.7 % (0.0-6.0); HEMATOCRIT 25.3 % (34.2-44.1); LYMPHOCYTES # (AUTO) 1.2 (1.0-3.2); LYMPHOCYTES % 22.6 % (18.0-39.1); MEAN CORPUSCULAR HEMOGLOBIN 29.5 pg (28-32); MEAN CORPUSCULAR HGB CONC 31.6 g/dL (31-35); MEAN CORPUSCULAR VOLUME 93.4 fL (81-99); MONOCYTES # (AUTO) 0.6 (0.2-0.8); MONOCYTES % 11.1 % (4.4-11.3); NEUTROPHILS # (AUTO) 3.2 (2.1-6.9); NEUTROPHILS % 58.5 % (38.7-80.0); PLATELET COUNT 168 x10e3/uL (140-360); RED BLOOD COUNT 2.71 x10e6/uL (3.6-5.1); RED CELL DISTRIBUTION WIDTH 13.9 % (11.7-14.4)
[2018-03-15] MEDS: CEFEPIME HCL 1 GM VIAL IV SCH (05:41)
[2018-03-15] MEDS: PHENYTOIN SODIUM EXT REL 100 MG CAP PO SCH ×3 (05:42→20:49)
[2018-03-15] MEDS: GUAIFENESIN 600 MG TAB PO SCH ×4 (05:42→18:25)
[2018-03-15 05:44] LABS: ANION GAP 13.6 mmol/L (8-16); CREATININE, SERUM 4.22 mg/dL (0.57-1.11); MAGNESIUM 1.8 MG/DL (1.3-2.1); POTASSIUM 4.6 mmol/L (3.5-5.1)
[2018-03-15] MEDS: CLONIDINE HCL 0.1 MG TAB PO SCH ×3 (06:00→20:49)
[2018-03-15 06:13] VITALS: BP 138/63
[2018-03-15] MEDS: INSULIN LISPRO 100 UNIT/1 ML 3ML VIAL SQ SCH ×4 (07:30→21:15)
[2018-03-15 08:00] VITALS: BP 149/84
[2018-03-15] MEDS ORDERED: LIDOCAINE HCL 1% LOCAL INJ 20 ML VIAL ONE (08:35)
[2018-03-15] MEDS ORDERED: IOPAMIDOL 300MG/ML 100 ML INFUS..BTL IV ONE (08:35)
[2018-03-15] MEDS: LOSARTAN POTASSIUM 100 MG TAB PO SCH (09:00)
[2018-03-15] MEDS: BALSAM PERU/CASTOR OIL 60 GM OINT...G. TP SCH ×2 (09:00→18:25)
[2018-03-15] MEDS: ASPIRIN 81 MG ENTERIC COATED PO SCH (09:00)
[2018-03-15] MEDS: CLOPIDOGREL BISULFATE 75 MG TAB PO SCH (10:00)
[2018-03-15] MEDS: HYDRALAZINE HCL 100 MG TABLET PO SCH ×2 (10:00→18:25)
[2018-03-15] MEDS: LEVETIRACETAM 500 MG TAB PO SCH (10:00)
[2018-03-15] MEDS: FAMOTIDINE 20 MG TAB PO SCH (10:00)
[2018-03-15] MEDS: OXYCODONE HCL IR 5 MG TAB PO PRN ×2 (11:49→18:28)
[2018-03-15 12:00] VITALS: BP 174/71
--- NOTE | 2018-03-15 12:39 | Diagnostic Imaging Report ---
PROCEDURE:US GUIDANCE FOR VASCULAR ACCESS COMPARISON:None. INDICATIONS:Central Line Placement FINDINGS:Ultrasound evaluation of potential access sites was performed. After successfully identifying a patent vessel, US guidance was used to puncture the right internal jugular vein. A permanent recording was created for the patient record. CONCLUSION:Successful IV access by ultrasound guidance. Jas Whatley D.O. Dictated by: Jas Whatley D.O. on 03/15/2018 at 12:43 Electronically approved by: Jas Whatley D.O. on 03/15/2018 at 12:43
--- NOTE | 2018-03-15 12:44 | Diagnostic Imaging Report ---
PROCEDURE:NON-TUNNELLED CVC CATH PLACMNT COMPARISON:None. INDICATIONS: CENTRAL LINE PLACEMENT COMPLICATIONS: NONE MEDICATIONS: 1% Xylocaine. BLOOD LOSS: Less than 2 cc PROCEDURE: Local anesthesia obtained with 1% Xylocaine. Ultrasound was utilized for puncture of the right internal jugular vein with a 21 gauge skinny needle. This was followed by 0.018 " wire and then a micropuncture sheath. Through the outer portion of the micropuncture sheath a 0.035 " Amplatz Super Stiff wire was advanced centrally with C-arm fluoroscopic guidance. A 7 [place] Arrow triple-lumen central line was placed over the wire following interval dilatation with a Jose dilator. The line was secured to the skin with 3-0 Ethilon. The line is okay for immediate use. Fluoroscopy time: 0.2 minutes Air Kerma: 6.5 mGy CONCLUSION: Successful placement of a 7 Trin[place] triple-lumen central line utilizing ultrasound and fluoroscopic guidance. Jas Whatley D.O. Dictated by: Jas Whatley D.O. on 03/15/2018 at 12:49 Electronically approved by: Jas Whatley D.O. on 03/15/2018 at 12:49
--- NOTE | 2018-03-15 12:44 | Diagnostic Imaging Report ---
PROCEDURE:NON-TUNNELLED CVC CATH PLACMNT COMPARISON:None. INDICATIONS: CENTRAL LINE PLACEMENT COMPLICATIONS: NONE MEDICATIONS: 1% Xylocaine. BLOOD LOSS: Less than 2 cc PROCEDURE: Local anesthesia obtained with 1% Xylocaine. Ultrasound was utilized for puncture of the right internal jugular vein with a 21 gauge skinny needle. This was followed by 0.018 " wire and then a micropuncture sheath. Through the outer portion of the micropuncture sheath a 0.035 " Amplatz Super Stiff wire was advanced centrally with C-arm fluoroscopic guidance. A 7 [place] Arrow triple-lumen central line was placed over the wire following interval dilatation with a Jose dilator. The line was secured to the skin with 3-0 Ethilon. The line is okay for immediate use. Fluoroscopy time: 0.2 minutes Air Kerma: 6.5 mGy CONCLUSION: Successful placement of a 7 [place] triple-lumen central line utilizing ultrasound and fluoroscopic guidance. Jas Whatley D.O. Dictated by: Jas Whatley D.O. on 03/15/2018 at 12:49 Electronically approved by: Jas Whatley D.O. on 03/15/2018 at 12:49
[2018-03-15 16:00] VITALS: BP 174/71
[2018-03-15] MEDS: AZITHROMYCIN 500MG/NS 250 ML 250 ML IV SCH (18:25)
[2018-03-15] MEDS ORDERED: SODIUM CHLORIDE 0.9% 250ML 250 ML ONE (19:23)
[2018-03-15 20:00] VITALS: BP 149/78
[2018-03-15] MEDS: ATORVASTATIN 10 MG TAB PO SCH (20:49)
[2018-03-16] VITALS: BP 161/70
[2018-03-16] MEDS: GUAIFENESIN 600 MG TAB PO SCH ×4 (00:02→18:21)
[2018-03-16 03:37] LABS: BASOPHILS % 0.5 % (0.0-1.0); EOSINOPHILS # (AUTO) 0.4 (0.0-0.4); EOSINOPHILS % 6.8 % (0.0-6.0); HEMATOCRIT 25.5 % (34.2-44.1); HEMOGLOBIN 8.3 g/dL (12.0-16.0); LYMPHOCYTES # (AUTO) 1.1 (1.0-3.2); LYMPHOCYTES % 19.6 % (18.0-39.1); MEAN CORPUSCULAR HEMOGLOBIN 30.1 pg (28-32); MEAN CORPUSCULAR HGB CONC 32.5 g/dL (31-35); MEAN CORPUSCULAR VOLUME 92.4 fL (81-99); MONOCYTES # (AUTO) 0.5 (0.2-0.8); NEUTROPHILS # (AUTO) 3.5 (2.1-6.9); NEUTROPHILS % 63.9 % (38.7-80.0); PLATELET COUNT 156 x10e3/uL (140-360); RED BLOOD COUNT 2.76 x10e6/uL (3.6-5.1); RED CELL DISTRIBUTION WIDTH 13.9 % (11.7-14.4)
[2018-03-16 03:50] LABS: ANION GAP 12.4 mmol/L (8-16); CALCIUM 8.2 mg/dL (8.4-10.2); CREATININE, SERUM 2.75 mg/dL (0.57-1.11); MAGNESIUM 1.8 MG/DL (1.3-2.1); POTASSIUM 4.4 mmol/L (3.5-5.1)
[2018-03-16 04:00] VITALS: BP 178/99
[2018-03-16] MEDS: OXYCODONE HCL IR 5 MG TAB PO PRN ×3 (04:30→22:26)
[2018-03-16] MEDS: CEFEPIME HCL 1 GM VIAL IV SCH (05:50)
[2018-03-16] MEDS: PHENYTOIN SODIUM EXT REL 100 MG CAP PO SCH ×3 (05:50→21:32)
[2018-03-16] MEDS: CLONIDINE HCL 0.1 MG TAB PO SCH ×3 (05:50→21:32)
[2018-03-16] MEDS: INSULIN LISPRO 100 UNIT/1 ML 3ML VIAL SQ SCH ×4 (07:30→21:30)
[2018-03-16] MEDS: FAMOTIDINE 20 MG TAB PO SCH (07:30)
[2018-03-16 08:00] VITALS: BP 169/69
[2018-03-16] MEDS: LOSARTAN POTASSIUM 100 MG TAB PO SCH (08:23)
[2018-03-16] MEDS: HYDRALAZINE HCL 100 MG TABLET PO SCH ×2 (08:23→18:21)
[2018-03-16] MEDS: DOCUSATE SODIUM 100 MG CAP PO SCH ×2 (09:00→18:19)
[2018-03-16] MEDS: BALSAM PERU/CASTOR OIL 60 GM OINT...G. TP SCH ×2 (09:00→18:21)
[2018-03-16] MEDS: ASPIRIN 81 MG ENTERIC COATED PO SCH (09:00)
[2018-03-16] MEDS: CLOPIDOGREL BISULFATE 75 MG TAB PO SCH (09:00)
[2018-03-16] MEDS: LEVETIRACETAM 500 MG TAB PO SCH (09:00)
[2018-03-16] MEDS: POLYETHYLENE GLYCOL 3350 17 GM PACK PO SCH ×2 (09:00→18:19)
[2018-03-16] MEDS ORDERED: LIDOCAINE HCL 2% LOCAL 20 ML VIAL ONE (09:26)
[2018-03-16] MEDS ORDERED: IOPAMIDOL 300MG/ML 100 ML INFUS..BTL IV ONE ×2 (09:26→10:12)
[2018-03-16] MEDS ORDERED: FENTANYL CITRATE/PF 100MCG/2 ML INJ ONE (09:27)
[2018-03-16] MEDS ORDERED: SODIUM CHLORIDE 0.9% 1000ML 3,000 ML ONE (09:27)
[2018-03-16] MEDS ORDERED: MIDAZOLAM HCL 2 MG/2 ML VIAL ONE (09:27)
[2018-03-16 12:00] VITALS: BP 160/67
[2018-03-16] MEDS ORDERED: MAGNESIUM HYDROXIDE 30 ML UDC PO ONE (12:00)
[2018-03-16 16:00] VITALS: BP 184/79
[2018-03-16] MEDS: PREGABALIN 25 MG CAP PO SCH (18:19)
[2018-03-16] MEDS: AZITHROMYCIN 500MG/NS 250 ML 250 ML IV SCH (18:21)
[2018-03-16] MEDS ORDERED: POLYETHYLENE GLYCOL 3350 17 GM PACK PO ONE (18:30)
[2018-03-16 20:16] VITALS: BP 186/81
[2018-03-16] MEDS: ATORVASTATIN 10 MG TAB PO SCH (21:32)
[2018-03-16] MEDS: LORAZEPAM INJ 2 MG/ML VIAL IV PRN (21:32)
[2018-03-17] VITALS (7 sets, daily range): BP systolic 97–175; BP diastolic 42–76
[2018-03-17] MEDS: GUAIFENESIN 600 MG TAB PO SCH ×4 (00:04→17:15)
[2018-03-17] MEDS: OXYCODONE HCL IR 5 MG TAB PO PRN ×3 (04:40→20:44)
[2018-03-17] MEDS: CEFEPIME HCL 1 GM VIAL IV SCH (05:16)
[2018-03-17] MEDS: PHENYTOIN SODIUM EXT REL 100 MG CAP PO SCH ×3 (05:16→20:45)
[2018-03-17 05:29] LABS: BASOPHILS % 0.5 % (0.0-1.0); EOSINOPHILS # (AUTO) 0.6 (0.0-0.4); EOSINOPHILS % 7.6 % (0.0-6.0); HEMATOCRIT 28.1 % (34.2-44.1); HEMOGLOBIN 8.9 g/dL (12.0-16.0); LYMPHOCYTES # (AUTO) 1.2 (1.0-3.2); MEAN CORPUSCULAR HEMOGLOBIN 29.6 pg (28-32); MEAN CORPUSCULAR HGB CONC 31.7 g/dL (31-35); MEAN CORPUSCULAR VOLUME 93.4 fL (81-99); MONOCYTES # (AUTO) 0.6 (0.2-0.8); MONOCYTES % 7.6 % (4.4-11.3); NEUTROPHILS # (AUTO) 5.3 (2.1-6.9); PLATELET COUNT 186 x10e3/uL (140-360); RED BLOOD COUNT 3.01 x10e6/uL (3.6-5.1); RED CELL DISTRIBUTION WIDTH 13.6 % (11.7-14.4)
[2018-03-17 05:55] LABS: ANION GAP 15.5 mmol/L (8-16); CALCIUM 8.4 mg/dL (8.4-10.2); CREATININE, SERUM 3.63 mg/dL (0.57-1.11); MAGNESIUM 1.9 MG/DL (1.3-2.1); POTASSIUM 4.5 mmol/L (3.5-5.1)
[2018-03-17] MEDS: CLONIDINE HCL 0.1 MG TAB PO SCH ×3 (06:02→20:45)
[2018-03-17] MEDS ORDERED: SODIUM CHLORIDE 0.9% 1000ML 1,000 ML ONE (06:23)
[2018-03-17] MEDS: LORAZEPAM INJ 2 MG/ML VIAL IV PRN ×3 (07:03→20:44)
[2018-03-17] MEDS: FAMOTIDINE 20 MG TAB PO SCH (07:30)
[2018-03-17] MEDS: INSULIN LISPRO 100 UNIT/1 ML 3ML VIAL SQ SCH ×4 (07:30→21:00)
[2018-03-17] MEDS ORDERED: CITRATE OF MAGNESIA 300ML BOTTLE PO NR (08:00)
[2018-03-17] MEDS: PREGABALIN 25 MG CAP PO SCH ×2 (09:00→17:15)
[2018-03-17] MEDS: LEVETIRACETAM 500 MG TAB PO SCH (09:00)
[2018-03-17] MEDS: POLYETHYLENE GLYCOL 3350 17 GM PACK PO SCH ×2 (09:00→17:15)
[2018-03-17] MEDS: ASPIRIN 81 MG ENTERIC COATED PO SCH (09:00)
[2018-03-17] MEDS: LOSARTAN POTASSIUM 100 MG TAB PO SCH (09:00)
[2018-03-17] MEDS: HYDRALAZINE HCL 100 MG TABLET PO SCH ×2 (09:00→17:15)
[2018-03-17] MEDS ORDERED: LIDOCAINE 5% PATCH TP SCH (09:00)
[2018-03-17] MEDS: CLOPIDOGREL BISULFATE 75 MG TAB PO SCH (09:00)
[2018-03-17] MEDS: DOCUSATE SODIUM 100 MG CAP PO SCH ×3 (09:00→17:15)
[2018-03-17] MEDS: BALSAM PERU/CASTOR OIL 60 GM OINT...G. TP SCH ×2 (09:41→17:15)
[2018-03-17] MEDS ORDERED: VANCOMYCIN 1GM/NS 250 ML 250 ML IV SCH (11:00)
--- NOTE | 2018-03-17 17:00 | Diagnostic Imaging Report ---
PROCEDURE:ABDOMINAL ULTRASOUND COMPARISON:None. INDICATIONS:ABDOMEN PAIN FINDINGS: Limited examination due to patient body habitus and excessive bowel gas. Liver: 16.3 cm in length. Normal hepatic parenchymal echogenicity. No focal mass. Main portal vein: 1.0 cm in caliber. Hepatopedal flow. Gallbladder: Absent Common Bile Duct: Mildly dilated up to 1.2 cm. No echogenic filling defect. Right kidney: 9.0 cm in length. No solid or cystic mass or hydronephrosis. Normal parenchymal echogenicity. Punctate calcifications in both kidneys may represent cortical calcifications. Left kidney: 9.8 cm in length No solid or cystic mass or hydronephrosis. Normal parenchymal echogenicity. Punctate calcifications in both kidneys may represent dystrophic cortical calcifications Spleen: 11.7 cm in length Pancreas: Mildly prominent pancreatic duct at the level of the pancreatic neck, measuring up to 3 mm. No focal masses identified. Inferior vena cava: Normal. Aorta: Normal. Ascites: None. CONCLUSION: 1. Mild dilatation of the distal common bile duct and pancreatic duct without definite obstructing lesion identified. The significance of this is uncertain. Recommend CT of the abdomen (with and without contrast) for further evaluation. 2. Status post cholecystectomy. 3. Punctate calcifications in both kidneys may represent dystrophic cortical calcifications. Dictated by: Shaquille Browne M.D. on 03/17/2018 at 17:04 Electronically approved by: Shaquille Browne M.D. on 03/17/2018 at 17:04
[2018-03-17] MEDS: AZITHROMYCIN 500MG/NS 250 ML 250 ML IV SCH (17:15)
--- NOTE | 2018-03-17 19:03 | Discharge Summary ---
ADMISSION DIAGNOSES 1. Pneumonia. 2. Hyperlipidemia. 3. Agitation. 4. Right lower extremity cellulitis, failed outpatient treatment. 5. End-stage renal disease needing dialysis. 6. Hyponatremia. 7. Hyperkalemia. 8. Hypertension. 9. History of seizures. 10. Type 2 diabetes. DISCHARGE DIAGNOSES 1. Pneumonia. 2. Hyperlipidemia. 3. Agitation. 4. Right lower extremity cellulitis, failed outpatient treatment. 5. End-stage renal disease needing dialysis. 6. Hyponatremia. 7. Hyperkalemia. 8. Hypertension. 9. History of seizures. 10. Type 2 diabetes. 11. Ruled out cerebrovascular accident. 12. Urinary tract infection. 13. Left lower extremity diabetic ulcer. HISTORY: The patient has a history of hypertension, type 2 diabetes, neuropathy, end-stage renal disease with dialysis Tuesday, Tuesday and Tuesday via left upper extremity AV graft. HOSPITAL COURSE: Per EMS/half-way staff, the patient was having altered mental status after receiving scheduled morphine and p.r.n. oxycodone. The patient was on Cipro for cellulitis and to a possible allergic reaction, it was changed to doxycycline. Per RN, the cellulitis showed very little improvement. The patient's last dialysis was on Tuesday. Limited HPI due the patient's condition. On admission, the patient was started on gentamicin, vancomycin and Zithromax, nebs and Mucinex for pneumonia and cellulitis. The patient had a chest x-ray that showed findings remaining suspicious for interstitial edema, opacity in the left upper lobe suspicious for infection. Left foot x-ray showed psoriatic linear lesion in the distal left 5th metatarsal which may represent stress injury or fracture. Soft tissue ulceration of the left heel, no osteomyelitis. The patient had a central line placed for long-term antibiotics. Echo showed an EF of 60% to 65%. Trace to mild mitral regurgitation and moderate tricuspid regurgitation. Her bilateral lower extremity venous Doppler was negative. Her bilateral lower extremities arterial Doppler showed possible arterial stenosis in the right lower extremity. IR was consulted for arterial stenosis but found no significant stenosis and so no intervention. After getting antibiotics, the patient's mental status returned to baseline. She was no longer confused or agitated. 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 The patient understands discharge instructions and agrees to follow up. She is excited and ready to go home. Vital signs stable. The patient is afebrile. Dictated by: Mariaa Guerrier NP FAITH CONSTANTINO MD Job#: [id number] BOLA
[2018-03-17] MEDS: ATORVASTATIN 10 MG TAB PO SCH (20:44)
--- NOTE | 2018-03-22 11:14 | Consultation ---
DATE OF CONSULTATION: March 14, 2018 REASON FOR CONSULTATION: Pneumonia. Thank you so much for asking me to see this patient. HISTORY OF PRESENT ILLNESS: This patient, who is a 63-year-old female, [place] She is not so sure why she is here. She said that all she remembers is that she was at dialysis unit and they sent her here. The patient, who seems a little bit confused as mentioned above, has no other complaints. The patient was brought to the emergency room, where she was evaluated and admitted. LABORATORY DATA: White count 5.3, hemoglobin 8.5. Sodium 137, potassium 4.4, and creatinine 3.25. MEDICATIONS: She is currently on Ativan and oxycodone. PHYSICAL EXAMINATION GENERAL: The patient is currently lying in bed comfortably. She is also... DICTATION ENDS ABRUPTLY AT 1:43 Job#: [id number] MANUEL
--- NOTE | 2018-03-22 11:16 | Consultation ---
DATE OF CONSULTATION: March 14, 2018 REASON FOR CONSULTATION: Pneumonia. HISTORY OF PRESENT ILLNESS: This patient is a very pleasant 63-year-old female, not a good source of information, history of dementia, history of end-stage renal disease with hemodialysis. Patient was brought [facility] the hospital [facility] Apparently she went to dialysis unit. While she was there, she does know why but she was brought here. The patient is confused. Apparently, according to the notes, she missed dialysis. She does have a history of end-stage renal disease. Patient apparently was short of breath and it was felt she had pneumonia. She was given Levaquin, vancomycin and azithromycin. The patient does not provide any meaningful information, history was taken mainly from the chart. Patient received several antibiotics. In the emergency room she was diagnosed with pneumonia. Her chest x-ray did show interstitial edema and left upper lobe infection. LABORATORY DATA: White count 5.3, hemoglobin 8.5, sodium 137.4. ALLERGIES: SULFA DRUGS AND HEPARIN. MEDICATION: She is currently on Ativan, Azactam, azithromycin, gentamicin, vancomycin. REVIEW OF SYSTEMS: She is not so sure why she is here. She is thirsty. She is not a good source of information. PHYSICAL EXAMINATION GENERAL: She is currently alert, comfortable. VITAL SIGNS: Stable. Currently afebrile. HEENT: She is not normocephalic, atraumatic. NECK: Supple. CHEST: Clear. HEART: Normal S1, S2. ABDOMEN: Soft. Bowel sounds present. tenderness. EXTREMITIES: No edema. IMPRESSION 1. Pneumonia and healthcare-associated as the patient comes from a group home. Continue with vancomycin. Stop the gentamicin and will adjust. Will discontinue also Azactam. Will give her cefepime 1 gram daily. Follow up with a chest x-ray in a few days. Should she spike a fever, we will get the blood cultures. 2. End-stage renal disease. 3. Dementia. 4. We need to get further information to follow. Thank you for asking me to see this patient. Job#: [id number] OREN
--- NOTE | 2018-03-23 12:34 | Diagnostic Imaging Report ---
Date and Time: 03/16/2018 Procedure: Bilateral lower extremity angiography amusement equipment operator: Dr. 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 The patient's heart rate and pulse oximetry were continuously monitored by the interventional radiology nurse. Blood pressure was monitored at 5 minute intervals. Additional Medications: Lidocaine 1% for local anesthesia Fluoroscopy time: 9.5 minutes Dose-area Product: 2929.7 cGycm2. Contrast used: 80 cc Isovue-300 Estimated blood loss: Less than 10 cc Specimens: None Implants: None Blood products administered: None Condition at completion of procedure: Stable Disposition: Returned to floor Complications: No immediate DISCUSSION: Informed consent for the procedure was obtained and documented in the medical record after discussion of risks and benefits. The patient was placed in the supine position on the angiographic table. The left groin was prepped and draped in the standard sterile fashion. 1% lidocaine was infiltrated into the skin and subcutaneous tissues for local anesthesia. Then under continuous sonographic guidance, a 21-gauge micropuncture needle was used to access the left common femoral artery. A 0.0 1 8-in. wire was advanced centrally under fluoroscopic guidance, and the needle was exchanged for a 5 Danish micropuncture sheath. The wire was upsized to a 0.0 3 5-in. J-wire and the micropuncture sheath was exchanged for a 5 Danish vascular sheath. A 5 Danish flush catheter was then advanced over the wire and positioned in the low abdominal aorta. Digital subtraction angiography of the pelvis was performed. A 0.0 3 5-in. Glidewire advantage was advanced through the catheter and used to select the right common then right external iliac artery. The catheter was advanced over the wire and positioned in the distal external iliac artery. Digital subtraction angiography of the right lower extremity was then performed at multiple stations. The catheter was then retracted into the left external iliac artery. Digital subtraction angiography of the left lower extremity was then performed. At the conclusion of imaging the catheter and sheath were removed and hemostasis was achieved with manual compression. A sterile dressing was applied. The patient tolerated the procedure well without immediate complication. Findings: 1. Diffuse atherosclerotic calcification of the pelvic and lower extremity arteries. 2. No significant iliac inflow stenosis. 3. No significant right or left femoral-popliteal stenosis. 4. Bilateral three-vessel runoff to the feet also without significant stenosis. 5. Mild bilateral changes of small vessel diabetic vasculopathy in the feet. IMPRESSION: Successful bilateral lower extremity angiography. No significant iliac inflow or femoral-popliteal stenosis. Bilateral three-vessel runoff to the feet, with changes of mild small vessel diabetic vasculopathy. Recommend continued medical management of cardiovascular risk factors. Signed by: Dr. Kai Mercer M.D. on 03/16/2018 12:46 PM
== END 2018-03-17 21:14 | DRG 682 ==
LOC: ER 22:26 → ERHOLD 03-13 00:58 → MED/SURG2 03-13 02:27
PROVIDERS: ADMIT Internal Medicine; ATTEND Internal Medicine
PROC: 5A1D70Z Performance of Urinary Filtration, Intermittent, Less than 6 Hours Per Day (ICD-10-PCS; principal; 2018-03-13)
PROC: 5A1D70Z Performance of Urinary Filtration, Intermittent, Less than 6 Hours Per Day (ICD-10-PCS; 2018-03-15)
PROC: 02HV33Z Insertion of Infusion Device into Superior Vena Cava, Percutaneous Approach (ICD-10-PCS; 2018-03-15)
PROC: B548ZZA Ultrasonography of Superior Vena Cava, Guidance (ICD-10-PCS; 2018-03-15)
DX: I12.0 Hypertensive chronic kidney disease with stage 5 chronic kidney disease or end stage renal disease (principal); J15.9 Unspecified bacterial pneumonia; N18.6 End stage renal disease; L03.115 Cellulitis of right lower limb; E87.1 Hypo-osmolality and hyponatremia; G40.919 Epilepsy, unspecified, intractable, without status epilepticus; N39.0 Urinary tract infection, site not specified; L97.429 Non-pressure chronic ulcer of left heel and midfoot with unspecified severity; E87.5 Hyperkalemia; E86.0 Dehydration; N28.9 Disorder of kidney and ureter, unspecified; E11.22 Type 2 diabetes mellitus with diabetic chronic kidney disease; Z99.2 Dependence on renal dialysis; R41.82 Altered mental status, unspecified; E11.42 Type 2 diabetes mellitus with diabetic polyneuropathy; Z88.2 Allergy status to sulfonamides; Z88.8 Allergy status to other drugs, medicaments and biological substances; B95.2 Enterococcus as the cause of diseases classified elsewhere; K59.00 Constipation, unspecified; E78.5 Hyperlipidemia, unspecified; E11.621 Type 2 diabetes mellitus with foot ulcer; I08.1 Rheumatic disorders of both mitral and tricuspid valves
CPT/HCPCS: 36246; 36415; 36556; 71045; 74470; 75716; 76700; 76937; 77001; 80048; 80053; 81001; 82550; 82553; 82948; 83036; 83735; 83880; 84439; 84443; 84484; 85025; 85610; 85730; 86704; 86706; 87071; 87086; 87186; 87205; 87340; 93005; 93306; 93925; 93970; 94640; 97139; 99284; C1751; C1769; J0456; J0610; J0692; J1580; J2001; J2060; J2250; J3370; J7030; J7050; J7799; Q9967